=== PATIENT | female | born 1940 | race Caucasian/White ===

== ENCOUNTER → 2016-12-17 | Outpatient (CLI) | payer MEDICARE, BC ==
--- NOTE | 2016-12-18 06:07 | HKNOTE ---
DATE OF SERVICE: The patient's right hip pain improved with the cortisone injection she was given on 10/15/2016. How ever, the pain did not resolve completely, and she comes in for further treatment. PHYSICAL EXAMINATION: She continues to have quite severe tenderness over the greater trochanter, ri ght greater trochanter, and along the iliotibial band. The hip itself has a full range of motion wi thout pain. MANAGEMENT: I spent a considerable time with her discussing the nature of trochanteric bursitis. U nder sterile conditions, she was given injection of 2 mL of Kenalog and 6 mL of 2% lidocaine into th e tender areas. She will be seen again as necessary. Dictated By: RIK SMITH/BRIDGET Conf#: [id number] DID#: [id number]
== END | disposition home or self-care (01) ==
LOC: HKI 08:41
DX: M70.61 Trochanteric bursitis, right hip (principal)
CPT/HCPCS: 20610; G0463; J3301